=== PATIENT | female | born 1975 | race Caucasian/White ===

== ENCOUNTER 2020-05-06 09:34 | Emergency (ER) | payer OTHER, SELFPAY ==
[2020-05-06 09:41] VITALS: BP 157/97; PULSE 72; RESP 17; TEMP 37.1; O2SAT 100; BMI 27.3
--- NOTE | 2020-05-06 09:53 | CT_ITS ---
PROCEDURE: CT ABDOMEN PELVIS W CON CLINICAL INDICATION: abd pain Severe lower abdominal pain COMPARISON: CT ABDPELW CT abdomen pelvis w con from 03/19/2019 TECHNIQUE: IV Contrast: 75ML OPTIRAY 350 Oral Contrast None Axial images obtained with sagittal and coronal reformats. All CT scans at the facility use one or more dose reduction, viz: automated exposure control, ma/kV adjustment per patient size (including targeted exams where dose is matched to indication, i.e. head), or iterative reconstruction technique. FINDINGS: LOWER THORAX: No acute finding ABDOMEN & PELVIS: The liver, gallbladder, spleen, adrenal glands, pancreas, have an unremarkable appearance. There is a small cortical cyst of the left kidney superiorly. There is mild prominence of the renal pelves bilaterally. No ureteral calculi. No renal calculi. No hydronephrosis. No intestinal obstruction or free air. There is a small umbilical hernia containing fat. No evidence of appendicitis, intestinal obstruction, free air, or diverticulitis. The The uterus and adnexa have a somewhat bulky appearance. There is a cystic lesion in the left adnexa measuring 3 cm consistent with an ovarian cyst. There are bilateral tubal ligation clips present. No acute bony anomalies. There are degenerative changes at the symphysis pubis. There is a small amount fluid in the pelvis. There are few small nodes in the inguinal regions on both sides. The IMPRESSION: 1. No acute abdominal or pelvic findings. 2. Bulky appearance of the uterus and adnexa with a 3 cm left ovarian cyst. Pelvic ultrasound may provide further evaluation Dictated b Soham Mitchell MD 05/06/2020 10:48 Soham Mitchell MD in [place] 05/06/2020 10:48
--- NOTE | 2020-05-06 09:54 | HMH.EDGENADL ---
ED Disposition Clinical Impression: Abdominal pain Qualifiers: Abdominal location: lower abdomen, unspecified Qualified Code(s): R10.30 - Lower abdominal pain, unspecified Disposition: Home, Self-Care Condition on Discharge: Good Instructions: DI for Acute Abdomen Additional Instructions: Follow-up as we discussed. If you have any new, changing, worsening, or concerning symptoms, come back to the emergency department. Referrals: Catarina Hernadez [Primary Care Provider] - Time of Disposition: 12:31 - Critical Care Critical Care Time: No Attestation: On 05/06/20, the high probability of a clinically significant, sudden or life threatening deterioration of the following system(s) required my full and direct attention, intervention and personal management. The time I documented below is in addition to time spent performing reported procedures but includes the following listed in this critical care notation. Medical Decision Making - Medical Records MR Comment: 45-year-old female presents emergency department with sharp lower abdominal pain. She arrives to the ED hemodynamically stable, with reassuring vital signs, and looks well on exam. She has a history of appendectomy, is mildly tender throughout the right and left lower quadrants. Her pain is been constant, doubt ovarian torsion and she appears comfortable on evaluation other than very mild tenderness. Will get labs and UA and reassess. On reassessment, patient remains well. She did have a cyst on her ovary on CT, given this will get an ultrasound to further evaluate. Ultrasound shows good flow. Given the history, I doubt intermittent torsion. States that the pain is slowly eased off and she is not having any pain at this time. She has not required any pain medicines here. Labs are nonactionable at this time. She was given good return precautions and follow-up instructions and verbalized an understanding and agreement to the plan. Safe to discharge. - Dao Inquiry Pt receiving controlled substance: No Vital Signs: 05/06/20 09:41 05/06/20 11:17 Temperature 98.8 F Temperature Source Oral Pulse Rate [Right Radial] 72 55 L Respiratory Rate 17 Blood Pressure [Right Arm] 157/97 H 145/85 H Blood Pressure Mean [Right Arm] 117 105 Blood Pressure Source [Right Arm] Automatic Cuff Blood Pressure Position [Right Arm] Sitting 02 Sat by Pulse Oximetry 100 100 Oxygen Delivery Method Room Air Room Air - Lab Data Lab Results 05/06/20 09:44: Urine Color Yellow, Urine Appearance Clear, Urine pH 7.5, Ur Specific [place] 1.010, Urine Protein Negative, Urine Glucose (UA) Negative, Urine Ketones Negative, Urine Blood Trace-i, Urine Nitrate Negative, Urine Bilirubin Negative, Urine Urobilinogen 0.2, Ur Leukocyte Esterase Negative, Urine WBC Occasional, Ur Squamous Epith Cells 5-10 05/06/20 09:45: WBC 7.5, RBC 4.29, Hgb 14.0, Hct 39.9, MCV 93.0, MCH 32.6 H, MCHC 35.1, RDW 12.9, Plt Count 258, MPV 7.5, Neut % (Auto) 61.6, Lymph % (Auto) 31.5, O'Brien % (Auto) 5.3, Eos % (Auto) 1.2, Baso % (Auto) 0.5, Neut # (Auto) 4.6, Lymph # (Auto) 2.4, O'Brien # (Auto) 0.4, Eos # (Auto) 0.1, Baso # (Auto) 0.0 05/06/20 09:45: Urine HCG, Qual Negative 05/06/20 09:45: Sodium 138, Potassium 4.5, Chloride 102, Carbon Dioxide 28, Anion Gap 12.5, BUN 11, Creatinine 0.70, Estimated Creat Clear 105, Estimated GFR 90, Est GFR ( Amer) 109, Glucose 104 H, Calcium 9.7, Total Bilirubin 0.7, AST 28, ALT 27, Alkaline Phosphatase 92, Total Protein 7.7, Albumin 4.3, Globulin 3.4 H, Albumin/Globulin Ratio 1.3, Amylase 68, Lipase 110 Result diagrams: 05/06/20 09:45 05/06/20 09:45 Orders (Tests/Meds): ED MEDICATIONS Discontinued Medications Generic Name Dose Route Start Last Admin Trade Name Freq PRN Reason Stop Dose Admin Ioversol 75 ml 05/06/20 10:30 05/06/20 10:31 Rad-Optiray 350 100ml Vial IV 05/06/20 10:31 75 ml ONCE ONE Administration Protocol Sodium Chloride 10 ml 05/06
[2020-05-06 10:03] LABS: Microscopic, Urine URINE MICROSCOPIC (MICROSCOPIC)
[2020-05-06 10:04] LABS: Basophils % 0.5 % (0.1-2.0); Eosinophils # 0.1 K/mm3 (0.0-0.4); Eosinophils % 1.2 % (0.1-12.0); Hematocrit 39.9 % (37.0-47.0); Lymphocytes # 2.4 K/mm3 (0.7-4.5); Lymphocytes % 31.5 % (10-50); Mean Corpuscular HGB Conc 35.1 g/dL (31.8-35.4); Mean Corpuscular Hemoglobin 32.6 pg (27.0-31.2); Mean Platelet Volume 7.5 fl (7.4-10.4); Monocytes # 0.4 K/mm3 (0.1-1.0); Monocytes % 5.3 % (1.7-9.3); Neutrophils # 4.6 K/mm3 (1.8-7.8); Neutrophils % 61.6 % (37.0-80.0); Platelet Count 258 K/mm3 (142-424); Red Blood Count 4.29 M/mm3 (4.20-5.40); Red Cell Distribution Width 12.9 % (11.5-17.5); White Blood Count 7.5 K/mm3 (4.8-10.8)
[2020-05-06 10:08] LABS: Urine Pregnancy, HCG Qual. Negative (Negative)
[2020-05-06 10:08] LABS: Appearance,Urine CLEAR (Clear); Bilirubin,Urine Negative (Negative); Blood, Urine TRACE-I (Negative); Color,Urine YELLOW (Yellow); Glucose,Urine (UA) Negative (Negative); Ketones,Urine Negative (Negative); Leukocyte Esterase,Urine Negative (Negative); Nitrate,Urine Negative (Negative); PH,Urine 7.5 (5.0-8.5); Protein,Urine Negative (Negative); Urobilinogen,Urine 0.2 EU/dl (0.2)
[2020-05-06 10:10] LABS: Chloride 102 mmol/L (98-107); Potassium 4.5 mmoL/L (3.5-5.1); Sodium 138 mmol/L (136-145)
[2020-05-06 10:12] LABS: Amylase 68 U/L (30-110); Blood Urea Nitrogen 11 mg/dl (7-17)
[2020-05-06 10:13] LABS: Alanine Aminotransferase 27 U/L (12-78); Albumin Level 4.3 g/dl (3.5-5.0); Albumin/Globulin Ratio 1.3 (1.1-1.8); Alkaline Phosphatase 92 U/L (38-126); Anion Gap 12.5 mEq/L (5-15); Aspartate Amino Transferase 28 U/L (14-36); Bilirubin,Total 0.7 mg/dl (0.2-1.3); Calcium 9.7 mg/dl (8.4-10.2); Carbon Dioxide 28 mmol/L (22.0-30.0); Creatinine Clearance Estimated 105 mL/min (50-200); Estimated Glomerular Filt Rate 90 ml/min (>60); GFR (African American) 109 ML/MIN (>60); Globulin 3.4 g/dL (1.3-3.2); Glucose 104 mg/dl (74-100); Lipase 110 U/L (23-300); Total Protein,Serum 7.7 g/dl (6.3-8.2)
[2020-05-06 10:18] LABS: WBC,Urine Occasional #/hpf (0-3)
--- NOTE | 2020-05-06 10:19 | PC.NURSE ---
pt to CT
[2020-05-06 11:17] VITALS: BP 145/85; PULSE 55; O2SAT 100
--- NOTE | 2020-05-06 11:30 | US_ITS ---
PROCEDURE: US TRANSVAGINAL CLINICAL INDICATION: abd pain, cysts COMPARISON: US PTV US PELVIS-TRANSVAGINAL ONLY from 09/07/2013 FINDINGS: UTERUS: 8cm x 5cmx 4cm with a combined endometrial thickness of 3.8mm LEFT OVARY: [id number] with a volume of 15.4ml. RIGHT OVARY: [id number] with a volume of 5.5ml. There is bilateral ovarian blood flow present. Nabothian cysts are noted. There is a 3 cm simple appearing left renal cyst. No cul-de-sac fluid there is a 1 cm right ovarian cyst. IMPRESSION: 3 cm left ovarian cyst otherwise negative pelvic ultrasound Dictated b Soham Mitchell MD 05/06/2020 14:10 Soham Mitchell MD in [place] 05/06/2020 14:10
--- NOTE | 2020-05-06 11:52 | PC.NURSE ---
Pt to rad
[2020-05-06 12:45] VITALS: BP 154/85; PULSE 65; RESP 17; TEMP 37.1; O2SAT 100
== END 2020-05-06 12:46 | disposition home or self-care (01) ==
PROVIDERS: Emergency Provider Emergency Medicine; PCP Nurse Practitioner Family
DX: R10.30 Lower abdominal pain, unspecified (principal); E78.5 Hyperlipidemia, unspecified; Z79.899 Other long term (current) drug therapy
CPT/HCPCS: 74177; 76830; 80053; 81001; 81025; 82150; 83690; 85025; 99283; Q9967

== ENCOUNTER 2020-08-22 10:02 | Emergency (ER) | payer OTHER, SELFPAY ==
[2020-08-22 11:30] VITALS: BP 148/87; PULSE 74; RESP 19; TEMP 36.6; O2SAT 100; BMI 26.0
--- NOTE | 2020-08-22 11:41 | HMH.EDUTC ---
[facility] [place] Disposition Clinical Impression: Exposure to COVID-19 virus Disposition: Home, Self-Care Condition on Discharge: Good Instructions: Preventing the Spread of Coronavirus Discharge Instructions Additional Instructions: Drink plenty of fluids. Take tylenol for pain or fever. Return if you begin to have difficulty breathing. Follow up with your regular doctor. GO TO THE ER FOR ANY WORSENING SYMPTOMS Referrals: Catarina Hernadez [Primary Care Provider] - Time of Disposition: 11:43 Medical Decision Making - Medical Records Medical records reviewed: No: I reviewed the patient's medical records. - Dao Inquiry Pt receiving controlled substance: No Vital Signs: 08/22/20 11:30 08/22/20 11:47 Temperature 97.8 F 97.8 F Temperature Source Oral Pulse Rate 74 Pulse Rate [Right Brachial] 74 Respiratory Rate 19 19 Blood Pressure 148/87 H Blood Pressure [Right Arm] 148/87 H Blood Pressure Mean [Right Arm] 107 Blood Pressure Source [Right Arm] Automatic Cuff Blood Pressure Position [Right Arm] Sitting 02 Sat by Pulse Oximetry 100 Oxygen Delivery Method Room Air Orders (Tests/Meds): ORDERS Category Date Time Status Covid-19 Nasal PCR ([facility]) Routine Lab 08/22/20 11:24 Ordered Covid-19 Nasal PCR ([facility]) Routine Lab 08/22/20 11:30 Received [facility] [place] HPI - General Stated complaint: covid exposure Time Seen by Provider: 08/22/20 11:41 Mode of Arrival: Ambulatory Source of Information: Patient Limitations: No Limitations Description of Symptoms (Recalled from Triage Doc. by RN): PATIENT REQUESTING COVID TEST D/T EXPOSURE; DENIES SYMPTOMS HEENT Symptoms (Recalled from RN notes): No Resp Symptoms (Recalled from RN notes): No Skin Symptoms (Recalled from RN notes): No MS Symptoms (Recalled from RN notes): No Functional Status (Recalled from RN notes): WNL - History of Present Illness Provider Complaint: She states that she was expodes to covid 4 days ago. Her sister has covid, and she was around her sister for about 40 minutes. She denies any symptoms. - Related Data Home Medications Medication Instructions Recorded Confirmed Citalopram Hydrobromide [Celexa 20 mg PO DAILY 11/06/18 04/04/19 20mg Tablet] Pravastatin Sodium [Pravachol 40mg 40 mg PO HS 03/19/19 04/04/19 Tablet] Allergies Allergy/AdvReac Type Severity Reaction Status Date / Time No Known Allergies Allergy Verified 04/04/19 10:28 - Worker's Comp Is this a Worker's Comp case?: No [facility] History - Hepatitis A Screen Drug use history?: No High risk sexual behaviors?: No History of sexually transmitted infection?: No Currently employed?: No Childcare worker?: No Do you have indoor plumbing?: Yes Do you have electricity?: Yes Attestation statement:: This patient has been screened for Hepatitis A risk factors. I have reviewed the patient's past medical history: Yes Medical History: Reports:: Hyperlipidemia Denies:: Cancer, Diabetes Mellitus Type 1, Diabetes Mellitus Type 2, Internal Pacemaker, Lung Disease, MRSA, Seizures Other Medical History: Reports: Other. Denies: Blood Transfusion Reaction Other Surgeries: No: Pacemaker Amputation: No Fractures: No - Social History Smoking Status: Never smoker Alcohol Intake: never Alcohol Intake Frequency:: other Substance Use Type: other Occupational Status: other Family Hx:: Unable to obtain ROS Obtained: Yes All systems reviewed & no additional complaints - Constitutional Constitutional: Reports system reviewed and no additional complaints, except as docu - Eyes Eyes: Reports system reviewed and no additional complaints, except as docu - ENT Ears, Nose, Mouth, and Throat: Reports system reviewed and no additional complaints, except as docu - Cardiovascular Cardiovascular: Reports system reviewed and no additional complaints, except as docu - Respiratory Respiratory: Yes system reviewed and no additional complaints, except as docu -
[2020-08-22 11:47] VITALS: BP 148/87; PULSE 74; RESP 19; TEMP 36.6; O2SAT 100
== END 2020-08-22 11:51 | disposition home or self-care (01) ==
PROVIDERS: Emergency Provider Nurse Practitioner Family; PCP Nurse Practitioner Family
DX: Z20.828 Contact with and (suspected) exposure to other viral communicable diseases (principal)
CPT/HCPCS: 99201; U0003

== ENCOUNTER 2020-09-22 09:00 | Emergency (ER) | payer OTHER, SELFPAY ==
[2020-09-22 09:05] VITALS: BP 145/85; PULSE 73; RESP 19; TEMP 36.6; O2SAT 98; BMI 26.4
[2020-09-22 09:23] VITALS: BP 145/85; PULSE 73; RESP 19; TEMP 36.6; O2SAT 98
--- NOTE | 2020-09-22 09:29 | HMH.EDUTC ---
[facility] [place] Disposition Clinical Impression: Close exposure to COVID-19 virus Disposition: Home, Self-Care Condition on Discharge: Good Instructions: DI for COVID-19 (Suspected or Confirmed ), COVID-19 Viral Test, COVID-19: Testing and Tracing, Preventing the Spread of Coronavirus Discharge Instructions Additional Instructions: *Monitor Temp, Over the counter Motrin or Tylenol as directed/as needed Tylenol every 4 hours and Motrin every 6 hours (as long as your family doctor has told you that you can take it) for fever or pain. and straight to ER if unable to lower temp less than 101.0 after medication given Follow up IMMEDIATELY for new or worsening symptoms or no Noticeable improvement over the next 48-72 hours. 911 for difficulty breathing or swallowing You were tested for today for COVID19 your test result should be back in the next 24-48 hours, you may call to the [facility] to see if your test results are back in the next 48 hours [phone] [facility] hours are 9am-9pm You was given a handout with instructions for Self Quarantine and Self isolation for while you wait on test results and what to do if they are positive If you are positive the Health Dept will be contacting you also Referrals: Catarina Hernadez [Primary Care Provider] - As needed Forms: Work/School Release Time of Disposition: 09:31 Medical Decision Making - Dao Inquiry Pt receiving controlled substance: No Dao was queried for this patient: No Vital Signs: 09/22/20 09:05 Temperature 97.8 F Temperature Source Oral Pulse Rate [Right Brachial] 73 Respiratory Rate 19 Blood Pressure [Right Arm] 145/85 H Blood Pressure Mean [Right Arm] 105 Blood Pressure Source [Right Arm] Automatic Cuff Blood Pressure Position [Right Arm] Sitting 02 Sat by Pulse Oximetry 98 Oxygen Delivery Method Room Air Orders (Tests/Meds): ORDERS Category Date Time Status Covid-19 Nasal PCR Sendout [facility] Stat Lab 09/22/20 09:08 Received [facility] [place] HPI - General Stated complaint: covid exposure Time Seen by Provider: 09/22/20 09:29 Mode of Arrival: Ambulatory Source of Information: Patient Limitations: No Limitations Description of Symptoms (Recalled from Triage Doc. by RN): PATIENT REQUESTING COVID TEST D/T EXPOSURE; C/O COUGH X 2 DAYS HEENT Symptoms (Recalled from RN notes): No Resp Symptoms (Recalled from RN notes): Yes Skin Symptoms (Recalled from RN notes): No MS Symptoms (Recalled from RN notes): No Functional Status (Recalled from RN notes): WNL - History of Present Illness Provider Complaint: Patient states that she was around her daughter over the weekend who has since tested positive and she informed her work and they wanted her to come and get tested States that she is not having any symptoms other than a cough but had the cough before being around her daughter - Related Data Home Medications Medication Instructions Recorded Confirmed Citalopram Hydrobromide [Celexa 20 mg PO DAILY 11/06/18 09/22/20 20mg Tablet] Allergies Allergy/AdvReac Type Severity Reaction Status Date / Time No Known Allergies Allergy Verified 04/04/19 10:28 - Worker's Comp Is this a Worker's Comp case?: No [facility] History - Hepatitis A Screen Drug use history?: No High risk sexual behaviors?: No History of sexually transmitted infection?: No Currently employed?: No Childcare worker?: No Do you have indoor plumbing?: Yes Do you have electricity?: Yes Attestation statement:: This patient has been screened for Hepatitis A risk factors. I have reviewed the patient's past medical history: Yes Medical History: Reports:: Hyperlipidemia Denies:: Cancer, Diabetes Mellitus Type 1, Diabetes Mellitus Type 2, Internal Pacemaker, Lung Disease, MRSA, Seizures Other Medical History: Reports: Other. Denies: Blood Transfusion Reaction Other Surgeries: No: Pacemaker Amputation: No Fractures: No - Social History Smoking Status: Never smoker Alcohol Intake: never Alcohol Intake Anurag
[2020-09-23 12:34] LABS: Covid-19 Nasal PCR Sendout P&C NEGATIVE
== END 2020-09-22 09:30 | disposition home or self-care (01) ==
PROVIDERS: Emergency Provider Nurse Practitioner; PCP Nurse Practitioner Family
DX: Z20.828 Contact with and (suspected) exposure to other viral communicable diseases (principal); R05 Cough; E78.5 Hyperlipidemia, unspecified
CPT/HCPCS: 99201; U0004

== ENCOUNTER 2020-12-15 09:01 | Emergency (ER) | payer OTHER, SELFPAY ==
[2020-12-15 09:05] VITALS: BP 112/68; PULSE 66; RESP 20; TEMP 36.9; O2SAT 99; BMI 26.4
--- NOTE | 2020-12-15 09:36 | HMH.EDUTC ---
[facility] [place] Impression: Strep throat Disposition: Home, Self-Care Condition on Discharge: Good Instructions: Strep Throat (Alternative Therapy), Strep Throat, DI for Strep Throat Additional Instructions: *Monitor Temp, Over the counter Motrin or Tylenol as directed/as needed Tylenol every 4 hours and Motrin every 6 hours (as long as your family doctor has told you that you can take it) for fever or pain. and straight to ER if unable to lower temp less than 101.0 after medication given *Warm salt water gargles may help to soothe the throat *Throat Lozenges *Warm fluids like tea with honey may help to soothe the throat *Sleep elevated *Humidifier/Vaporizer *If you did not take Penicillin shot or was unable to, start taking antibiotic immediately and make sure that you take it for the FULL length of time although you should start to feel better in 24-48 hours *change toothbrush and toothpaste 24-48 hours after starting to take antibiotics so you do not reinfect yourself Monitor Temp. Tylenol and/or Ibuprofen as needed. ER if fever is no less than 101 despite alternating Tylenol and Ibuprofen * Encourage fluids, water, Gatorade, powerade, pedialyte if infant/toddler/or child *Cold fluids, popsicles and ice cream may feel good on his throat Follow up IMMEDIATELY for new or worsening symptoms or no Noticeable improvement over the next 48-72 hours. 911 for difficulty breathing or swallowing Prescriptions: Amoxicillin/Potassium Clav [Augmentin 875-125 Tablet] 1 tab PO Q12H #20 tab Transmission Status: Received by [facility] Referrals: Catarina Hernadez [Primary Care Provider] - As needed Forms: Work/School Release Time of Disposition: 09:43 Medical Decision Making - Dao Inquiry Pt receiving controlled substance: No Dao was queried for this patient: No Vital Signs: 12/15/20 09:05 12/15/20 09:46 Temperature 98.5 F 98.5 F Temperature Source Oral Pulse Rate 66 Pulse Rate [Right Brachial] 66 Respiratory Rate 20 20 Blood Pressure 112/68 Blood Pressure [Right Arm] 112/68 Blood Pressure Mean [Right Arm] 82 Blood Pressure Source [Right Arm] Automatic Cuff Blood Pressure Position [Right Arm] Sitting 02 Sat by Pulse Oximetry 99 Oxygen Delivery Method Room Air - Lab Data Lab results reviewed: Yes: I reviewed the patient's lab results. Lab Results 12/15/20 09:25: Urine Color Yellow, Urine Appearance Clear, Urine pH 5.0, Ur Specific [place] 1.020, Urine Protein Negative, Urine Glucose (UA) Negative, Urine Ketones Negative, Urine Blood 1+, Urine Nitrate Negative, Urine Bilirubin Negative, Urine Urobilinogen 0.2, Ur Leukocyte Esterase Negative 12/15/20 09:44: Strep Scn Rapid [facility] Positive [facility] [place] - General Stated complaint: DAY 2 days throat sore weakness Time Seen by Provider: 12/15/20 09:36 Mode of Arrival: Ambulatory Source of Information: Patient Limitations: No Limitations Description of Symptoms (Recalled from Triage Doc. by RN): PATIENT C/O HEADACHE, WEAKNESS, AND SORE THROAT SINCE YESTERDAY AND LEFT SIDE PAIN SINCE TUESDAY HEENT Symptoms (Recalled from RN notes): Yes Resp Symptoms (Recalled from RN notes): No Skin Symptoms (Recalled from RN notes): No MS Symptoms (Recalled from RN notes): No Functional Status (Recalled from RN notes): WNL - History of Present Illness Provider Complaint: Patient states that she hasnt felt well for several days States that she has been having sore throat, headache, and thinks she may have a UTI also she has been having achy like feeling in her left lower back area and wants to get it checked too - Related Data Home Medications Medication Instructions Recorded Confirmed Citalopram Hydrobromide [Celexa 20 mg PO DAILY 11/06/18 12/15/20 20mg Tablet] Previous Rx's Medication Instructions Recorded Amoxicillin/Potassium Clav 1 tab PO Q12H #20 tab 12/15/20 [Augmentin 875-125 Tablet] Allergies Allergy/AdvReac
[2020-12-15 09:41] LABS: Apearance,Urine Clear (Clear); Color,Urine Yellow (Yellow)
[2020-12-15 09:42] LABS: Bilirubin,Urine Negative (Negative); Blood, Urine 1+ (Negative); Glucose,Urine (UA) Negative (Negative); Ketones,Urine Negative (Negative); Protein,Urine Negative (Negative); UTC Leukocyte Esterase,Urine Negative (Negative); UTC Nitrate,Urine Negative (Negative); Urobilinogen,Urine 0.2 EU/dl (0.2)
[2020-12-15 09:46] VITALS: BP 112/68; PULSE 66; RESP 20; TEMP 36.9; O2SAT 99
[2020-12-15 09:46] LABS: UTC Strep Screen (Rapid) Positive (Negative)
== END 2020-12-15 09:51 | disposition home or self-care (01) ==
PROVIDERS: Emergency Provider Nurse Practitioner; PCP Nurse Practitioner Family
DX: J02.0 Streptococcal pharyngitis (principal); E78.5 Hyperlipidemia, unspecified
CPT/HCPCS: 81003; 87880; 99202; G0463

== ENCOUNTER 2021-03-11 11:48 | Emergency (ER) | payer OTHER, SELFPAY ==
[2021-03-11 11:50] VITALS: BP 143/78; PULSE 78; RESP 19; TEMP 37; O2SAT 99; BMI 26.4
--- NOTE | 2021-03-11 12:16 | HMH.EDUTC ---
[facility] [place] Clinical Impression: Exposure to COVID-19 virus Disposition: Home, Self-Care Condition on Discharge: Good Instructions: Preventing the Spread of Coronavirus Discharge Instructions Additional Instructions: Drink plenty of fluids. Take tylenol for pain or fever. Return if you begin to have difficulty breathing. Follow up with your regular doctor. GO TO THE ER FOR ANY WORSENING SYMPTOMS Referrals: Catarina Hernadez [Primary Care Provider] - Time of Disposition: 12:18 Medical Decision Making - Medical Records Medical records reviewed: No: I reviewed the patient's medical records. - Dao Inquiry Pt receiving controlled substance: No Vital Signs: 03/11/21 11:50 03/11/21 12:18 Temperature 98.6 F 98.6 F Temperature Source Oral Pulse Rate 78 Pulse Rate [Right Brachial] 78 Respiratory Rate 19 19 Blood Pressure 143/78 H Blood Pressure [Right Arm] 143/78 H Blood Pressure Mean [Right Arm] 99 Blood Pressure Source [Right Arm] Automatic Cuff Blood Pressure Position [Right Arm] Sitting 02 Sat by Pulse Oximetry 99 Oxygen Delivery Method Room Air Orders (Tests/Meds): ORDERS Category Date Time Status Covid-19 Nasal PCR ([facility]) Routine Lab 03/11/21 11:58 Received [facility] [place] HPI - General Stated complaint: covid test Time Seen by Provider: 03/11/21 12:16 Mode of Arrival: Ambulatory Source of Information: Patient Limitations: No Limitations Description of Symptoms (Recalled from Triage Doc. by RN): COVID TEST D/T EXPOSURE. DENIES SYMPTOMS HEENT Symptoms (Recalled from RN notes): No Resp Symptoms (Recalled from RN notes): No Skin Symptoms (Recalled from RN notes): No MS Symptoms (Recalled from RN notes): No Functional Status (Recalled from RN notes): WNL - History of Present Illness Provider Complaint: She was exposed to covid at her job 4 days ago. She was told to come here to get a covid test. She denies any symptoms so far. - Related Data Home Medications Medication Instructions Recorded Confirmed Citalopram Hydrobromide [Celexa 20 mg PO DAILY 11/06/18 12/15/20 20mg Tablet] Previous Rx's Medication Instructions Recorded Amoxicillin/Potassium Clav 1 tab PO Q12H #20 tab 12/15/20 [Augmentin 875-125 Tablet] Allergies Allergy/AdvReac Type Severity Reaction Status Date / Time No Known Allergies Allergy Verified 04/04/19 10:28 - Worker's Comp Is this a Worker's Comp case?: No [facility] History - Hepatitis A Screen Drug use history?: No High risk sexual behaviors?: No History of sexually transmitted infection?: No Currently employed?: No Childcare worker?: No Do you have indoor plumbing?: Yes Do you have electricity?: Yes Attestation statement:: This patient has been screened for Hepatitis A risk factors. I have reviewed the patient's past medical history: Yes Medical History: Reports:: Hyperlipidemia Denies:: Cancer, Diabetes Mellitus Type 1, Diabetes Mellitus Type 2, Internal Pacemaker, Lung Disease, MRSA, Seizures Other Medical History: Reports: Other. Denies: Blood Transfusion Reaction Other Surgeries: No: Pacemaker Amputation: No Fractures: No - Social History Smoking Status: Never smoker Alcohol Intake: never Alcohol Intake Frequency:: other Substance Use Type: other Occupational Status: other Family Hx:: Unable to obtain ROS Obtained: Yes All systems reviewed & no additional complaints - Constitutional Constitutional: Reports system reviewed and no additional complaints, except as docu - Eyes Eyes: Reports system reviewed and no additional complaints, except as docu - ENT Ears, Nose, Mouth, and Throat: Reports system reviewed and no additional complaints, except as docu - Cardiovascular Cardiovascular: Reports system reviewed and no additional complaints, except as docu - Respiratory Respiratory: Reports system reviewed and no additional complaints, except as docu - Gastrointestinal Gastrointestingal: Repo
[2021-03-11 12:18] VITALS: BP 143/78; PULSE 78; RESP 19; TEMP 37; O2SAT 99
== END 2021-03-11 12:21 | disposition home or self-care (01) ==
PROVIDERS: Emergency Provider Nurse Practitioner Family; PCP Nurse Practitioner Family
DX: Z20.822 Contact with and (suspected) exposure to COVID-19 (principal); E78.5 Hyperlipidemia, unspecified
CPT/HCPCS: 99202; G0463; U0003

== ENCOUNTER → 2021-06-23 09:33 | Outpatient (CLI) | payer OTHER, SELFPAY | PROVIDERS: PCP Nurse Practitioner Family; Visit Provider Nurse Practitioner | DX: Z20.822 Contact with and (suspected) exposure to COVID-19 (principal) | CPT/HCPCS: C9803; U0003; U0005 ==

== ENCOUNTER → 2021-07-13 16:00 | Outpatient (CLI) | payer OTHER, SELFPAY | PROVIDERS: PCP Nurse Practitioner Family; Visit Provider Nurse Practitioner | DX: Z20.822 Contact with and (suspected) exposure to COVID-19 (principal) | CPT/HCPCS: C9803; U0003; U0005 ==

== ENCOUNTER → 2021-07-23 09:36 | Outpatient (CLI) | payer OTHER, SELFPAY ==
[2021-07-23] VITALS (11 sets, daily range): BP systolic 120–139; BP diastolic 42–82; PULSE 61–77; RESP 17–18; TEMP 36.8–37.1; O2SAT 93–98
== END ==
PROVIDERS: PCP Nurse Practitioner Family; Visit Provider Nurse Practitioner Family
DX: U07.1 COVID-19 (principal); Z23 Encounter for immunization
CPT/HCPCS: 96365

== ENCOUNTER → 2022-11-10 23:47 | Outpatient (CLI) | payer OTHER, SELFPAY | LOC: LAB.DROPOF 23:48 | PROVIDERS: PCP Family Medicine; Visit Provider Family Medicine | DX: J02.9 Acute pharyngitis, unspecified (principal) | CPT/HCPCS: 87070 ==

== ENCOUNTER 2024-03-20 10:25 | Outpatient (CLI) | payer OTHER, SELFPAY ==
--- NOTE | 2024-03-20 10:26 | NM_ITS ---
FINAL REPORT CLINICAL HISTORY: right upper quad pain 10:45AM 8.11 MCI TC CHOLETEC 1.3 MCG CCK MILD PAIN WITH CCK COMPARISON: None FINDINGS: The patient was injected with 8.11 mCi of technetium 99m Choletec and subsequently 1.3 mcg of CCK. Images of the abdomen were obtained for one hour. There is normal distribution of radiopharmaceutical throughout the liver. Sequential images demonstrate progressive accumulation of activity within the gallbladder. There is a calculated ejection fraction of 92%, within normal limits. IMPRESSION: Ejection fraction within normal limits. Reviewed, Interpreted and Dictated by Jimmy Barney MD Transcribed by Yamileth Dumont Authenticated and [facility]
[2024-03-20] MEDS: SODIUM CHLORIDE 0.9% 10ML SYR (RAD ONLY) 10 ML IV (10:45)
[2024-03-20] MEDS: SINCALIDE 1.3 MCG in 0.9 % SODIUM CHLORIDE 50 ML 100 MCG IV (11:45)
[2024-03-20] MEDS: ISOTOPE CHOLETECH;1 DOSE (UP TO 15 MCI) IV (12:11)
== END 2024-03-20 23:59 | disposition home or self-care (01) ==
LOC: RAD 10:26
PROVIDERS: PCP Nurse Practitioner Family; Visit Provider Surgery
DX: K82.4 Cholesterolosis of gallbladder (principal); K58.1 Irritable bowel syndrome with constipation
CPT/HCPCS: 78227; A9537; J2805

== ENCOUNTER 2024-05-21 10:31 | Outpatient (CLI) | payer OTHER, SELFPAY ==
[2024-05-21 10:49] LABS: Basophils # 0.1 K/mm3 (0-0.2); Eosinophils # 0.1 K/mm3 (0.0-0.4); Eosinophils % 1.6 % (0.1-12.0); Hematocrit 37.5 % (37.0-47.0); Hemoglobin 12.3 g/dL (12.2-16.2); Lymphocytes # 2.4 K/mm3 (0.7-4.5); Lymphocytes % 41.5 % (10-50); Mean Corpuscular HGB Conc 32.8 g/dL (31.8-35.4); Mean Corpuscular Volume 94.6 fl (81-99); Mean Platelet Volume 8.3 fl (7.4-10.4); Monocytes # 0.4 K/mm3 (0.1-1.0); Monocytes % 6.3 % (1.7-9.3); Neutrophils # 2.9 K/mm3 (1.8-7.8); Neutrophils % 49.7 % (37.0-80.0); Platelet Count 260 K/mm3 (142-424); Red Blood Count 3.97 M/mm3 (4.20-5.40); Red Cell Distribution Width 13.8 % (11.5-17.5); White Blood Count 5.9 K/mm3 (4.8-10.8)
[2024-05-21 11:20] LABS: Urine Pregnancy, HCG Qual. Negative (Negative)
[2024-05-21 12:02] LABS: Alanine Aminotransferase 26 U/L (12-78); Albumin/Globulin Ratio 1.3 (1.1-1.8); Alkaline Phosphatase 72 U/L (38-126); Anion Gap 10.6 mEq/L (5-15); Aspartate Amino Transferase 30 U/L (14-36); Bilirubin,Total 0.7 mg/dl (0.2-1.3); Blood Urea Nitrogen 14 mg/dl (7-17); Calcium 9.6 mg/dl (8.4-10.2); Carbon Dioxide 27 mmol/L (22.0-30.0); Chloride 103 mmol/L (98-107); Estimated Glomerular Filt Rate 106 ml/min (>60); GFR (African American) 129 ML/MIN (>60); Glucose 94 mg/dl (74-100); Potassium 3.6 mmoL/L (3.5-5.1); Sodium 137 mmol/L (136-145)
== END 2024-05-21 23:59 | disposition home or self-care (01) ==
LOC: LAB 10:32
PROVIDERS: PCP Nurse Practitioner Family; Visit Provider Surgery
DX: K82.8 Other specified diseases of gallbladder (principal)
CPT/HCPCS: 36415; 80053; 81025; 85025

== ENCOUNTER 2024-06-07 08:16 | Day surgery (SDC) | payer OTHER, SELFPAY ==
[2024-06-05 13:53] VITALS: BMI 27.9
[2024-06-07] VITALS (8 sets, daily range): BP systolic 139–183; BP diastolic 67–95; PULSE 68–112; RESP 14–18; TEMP 36.3–36.6; O2SAT 91–98
[2024-06-07 08:59] LABS: Urine Pregnancy, HCG Qual. Negative (Negative)
--- NOTE | 2024-06-07 10:06 | EXP.ANES.CKL ---
[facility] Disclaimer: The information contained in this section may have been updated after the patient was seen, as this information can be updated by other users. Medical History Anxiety Hyperlipidemia Surgical History History of colonoscopy History of surgery on lower extremity H/O tubal ligation Family History Mother Coronary artery disease Social History Smoking Status: Never smoker alcohol intake: never substance use type: denies use current occupational status: employed Travel in the last 8 weeks: None household members: significant other housing: house caffeine: Yes [facility] Anesthesia Checklist Patient Identification Patient Identification: Arm Band and Family Structural Data Admitted From: Home Planned Operative Procedure/s: Lap Ana Laura Consent for Planned Operative Procedure(s) Verified: Yes Verified Documents: Surgical Consent and History and Physical NPO Status Verified Time NPO: 00:00 Additional verifications Patient : No Anesthesia Reactions: No Hx Blood Transfusions: No Blood Transfusion Reaction: No Cephalosporin Allergy: No Previous Colonoscopy: Yes Airway Assessment Mallampati Score:: Class III C-Spine Mobility Assessed: Yes TMJ Mobility Assessed: Yes Dentition: Good Dentition Neurological Assessment Level of Consciousness: Awake, Alert, Appropriate and Follows Commands Hx Seizures: No Numbness or tingling in extremities: No Anesthesia Plan Anesthesia Risk discussed: Yes ASA Class: I Anesthesia Type: General
--- NOTE | 2024-06-07 11:26 | EXP.OP.NOTE ---
Date of procedure: 06/07/24 Pre-op Diagnosis:: Biliary dyskinesia Post-op Diagnosis:: Biliary dyskinesia Chronic cholecystitis Procedure performed:: Laparoscopic cholecystectomy Surgeon:: Amrit Miranda MD ON AIR ANNOUNCER:: Ramsey Carter Anesthesia: GETA Estimated blood loss (mL): 15 Operative findings:: Infundibular thickening Operative note:: After informed consent was obtained, the patient was taken to the operating room and placed in the supine position. General anesthesia was induced and the abdomen was prepped and draped in a sterile fashion. After infiltration with local anesthetic an infraumbilical incision was made. A Veress needle was placed in position. The abdomen was insufflated. A 5 mm optical trocar was placed in position. Under direct visualization, a 12 mm trocar was placed in the subxiphoid position and 2 additional 5 mm trocars were placed in the right upper quadrant. The gallbladder was elevated up and over the liver margin. The tissue around the cystic duct was carefully dissected. 3 clips were placed proximally and the duct was transected with harmonic jack. Harmonic jack were then utilized to dissect the gallbladder away from the liver margin with careful attention to the control of the cystic artery. The gallbladder was placed in a retrieval bag and removed through the subxiphoid trocar site. The right upper quadrant was thoroughly irrigated. No active bleeding or bile leak was noted. Fascia at the subxiphoid trocar site was reapproximated utilizing the NeoClose device. The remaining trocars were removed. All wounds were irrigated and skin was closed with 4-0 Monocryl in a mattress fashion to facilitate hemostasis. Steri-Strips were applied. The patient's anesthetic agents were reversed and extubation was completed prior to transfer to recovery in stable condition. Condition: stable Disposition: PACU Specimens:: Gallbladder Complications:: No immediate
--- NOTE | 2024-06-07 11:48 | EXP.ANES.I ---
[facility] Anesthesia Record Part I Anesthesia Record I Intake, IV Amount: 1,200 Hydration: Adequate Estimated blood loss (mL): 15 Urine output (mL): 0 Blood Products used (#): none Blood Pressure: 183/95 SaO2: 95 Pulse Rate: 100 Airway Patency: Patent Respiratory Rate: 14 Temperature: 97.3 F Patient is:: Drowsy and Stable
--- NOTE | 2024-06-08 08:29 | EXP.ANES.II ---
[facility] Anesthesia Record Part II Anesthesia Record Part II Discharge Time: 12:10 Destination: Surgical Day Care (OP Surgery) PACU nurse assessment reviewed?: Yes Patient Condition:: Good Anesthesia Complications:: None Swallowing reflex intact?: Yes Airway Patency: Patent Cyanosis?: No Blood Pressure: 154/80 SaO2: 91 Respiratory Rate: 16 Pulse Rate: 101 Temperature: 97.6 F Mental Status: Alert & Oriented Pain level:: 8 Nausea and/or vomitting:: None Intake, IV Amount: 0 Hydration: Adequate
[2024-06-08 08:30] VITALS: BP 154/80; PULSE 101; RESP 16; TEMP 36.4; O2SAT 91
== END 2024-06-07 12:50 | disposition home or self-care (01) ==
PROVIDERS: PCP Nurse Practitioner Family; Visit Provider Surgery
PROC: 0FT44ZZ Resection of Gallbladder, Percutaneous Endoscopic Approach (ICD-10-PCS; CPT 47562; principal; 2024-06-07 10:00)
DX: K82.8 Other specified diseases of gallbladder (principal); K81.1 Chronic cholecystitis
CPT/HCPCS: 47562; 81025; 96374; J3490; J1100; J1170; J2270; J2405; J3010; J7120